=== PATIENT | male | born 1945 | race Asian ===

== ENCOUNTER 2019-05-24 17:12 | Emergency (ER) | payer OTHER ==
[~2019-05-24] VITALS: Ht 160 cm; Wt 68.0 kg
[2019-05-24 17:56] VITALS: Ht 160 cm; Wt 68.0 kg
[2019-05-24 18:57] VITALS: BP 149/78
== END 2019-05-24 18:57 | disposition home or self-care (01) ==
LOC: ED 17:12
DX: K21.9 Gastro-esophageal reflux disease without esophagitis (principal); R06.02 Shortness of breath; J44.9 Chronic obstructive pulmonary disease, unspecified; I48.91 Unspecified atrial fibrillation; I10 Essential (primary) hypertension
CPT/HCPCS: Q0092